=== PATIENT | female | born 1965 | race Asian ===

== ENCOUNTER 2018-05-02 05:10 | Inpatient (IN) | payer BC, OTHER ==
[2018-05-01 11:04] VITALS: BMI 22.4
[2018-05-02] MEDS ORDERED: CEFAZOLIN 1 GM in DEXTROSE 5%-WATER - 50 ML IVPB ONE (06:07)
[2018-05-02] MEDS ORDERED: PHENAZOPYRIDINE HCL 100 MG TABLET (FP) PO ONE (06:08)
[2018-05-02] MEDS ORDERED: DEXAMETHASONE SOD PHOSPHATE/PF 10 MG/ML SDV ONE (07:27)
[2018-05-02] MEDS ORDERED: ROPIVACAINE HCL 0.5% 30ML VIAL ONE (07:27)
--- NOTE | 2018-05-02 07:27 | HP ---
History & Physical Update - History History: No Change - Physical Physical: No Change - Assessment Assessment: No Change - Plan Plan: No Change (full H&P in chart from 04/30/2018 Dr. Licona)
[2018-05-02] MEDS ORDERED: MIDAZOLAM HCL 2 MG/2 ML SINGLE DOSE VIAL ONE ×2 (07:28)
[2018-05-02] MEDS ORDERED: ROCURONIUM BROMIDE 50 MG/5 ML VIAL ONE (08:05)
[2018-05-02] MEDS ORDERED: PROPOFOL 20 ML ONE (08:05)
[2018-05-02] MEDS ORDERED: ceFAZolin SODIUM 1 GM VIAL IVPB ONE (08:12)
[2018-05-02] MEDS ORDERED: KETOROLAC TROMETHAMINE 30 MG/1 ML VIAL ONE (09:22)
[2018-05-02] MEDS ORDERED: DEXAMETHASONE SOD PHOSPHATE 4 MG/1 ML VIAL ONE (09:22)
[2018-05-02] MEDS ORDERED: NEOSTIGMINE METHYLSULFATE 0.5 MG/ML - 10 ML MDV ONE (09:23)
[2018-05-02] MEDS ORDERED: GLYCOPYRROLATE 0.2 MG/1 ML VIAL ONE (09:23)
[2018-05-02] MEDS ORDERED: LIDOCAINE HCL/PF 2% SDV 5ML VIAL ONE (09:23)
[2018-05-02] MEDS ORDERED: hydrALAZINE HCL 20 MG/ML VIAL ONE (10:06)
[2018-05-02] MEDS ORDERED: HYDROmorphone *PCA* 10MG/50ML DISP.SYRIN PCA ONE (10:06)
[2018-05-02] MEDS ORDERED: ONDANSETRON 4 MG/2 ML VIAL IVPUSH PRN ×2 (10:13→10:14)
[2018-05-02] MEDS ORDERED: DEXAMETHASONE SOD PHOSPHATE 4 MG/1 ML VIAL IVPUSH PRN (10:14)
[2018-05-02] MEDS ORDERED: PROMETHAZINE HCL 25 MG/1 ML VIAL IVPB PRN (10:14)
[2018-05-02] MEDS ORDERED: HYDROmorphone *PCA* 10MG/50ML DISP.SYRIN PCA SCH (10:15)
[2018-05-02] MEDS ORDERED: LACTATED RINGERS SOLUTION 1,000 ML IV SCH (10:15)
--- NOTE | 2018-05-02 10:20 | OP ---
Operative Note - Note: Operative Date: 05/02/18 Pre-Operative Diagnosis: leiomyoma of the uterus Operation: abdominal hysterectomy and bilateral salpingectomy Surgeon: Ursula Teague Poker Supervisor: Cherrie Villanueva Anesthesiologist/MEDIA CENTER ASSISTANT: Abigail Dueñas MD Anesthesia: General Specimens Removed: uterus, bilateral salpingx, right paraovarian mass Estimated Blood Loss (mls): 50 Drains, Volume Out (mls): 300 (lindsay) Fluid Volume Replaced (mls): 1,200 Operative Report Dictated: Yes
--- NOTE | 2018-05-02 10:37 | OP ---
DATE OF OPERATION: 05/02/2018 PREOPERATIVE DIAGNOSES: Leiomyomatous uterus, abdominal pain, submucosal myoma and intramural myomas. OPERATION: Total abdominal hysterectomy and bilateral salpingectomy. POSTOPERATIVE DIAGNOSES: Leiomyomatous uterus, abdominal pain, submucosal myoma and intramural myomas, and right paraovarian, 9-cm fibroma. SURGEON: Tad Teague MD DIRECTOR OF ADMISSIONS: REINALDO Shay ANESTHESIA: General. ANESTHESIOLOGIST: Abigail Dueñas MD PROCEDURE: Patient was taken to the operating room and placed in supine position, prepped and draped in the usual sterile fashion. Timeout was performed in accordance with hospital regulation. A Pfannenstiel skin incision was made with the scalpel. Cautery was then used to go through layers of abdominal wall to the level of the fascia. Fascia was cut in the midline, and cautery was then used to open the fascia in the following fashion. Afsaneh was then used to bluntly and sharply dissect the rectus muscle off the fascia. Muscles split in the midline. Peritoneal cavity was then entered and carried upward and downward. A leiomyomatous uterus was then exteriorized. Ovaries were noted to be 3 cm. A paraovarian tumor was noted on the right side, 9 cm. The ovary was adherent to the uterus on the left, and bowel was also attached posteriorly. The round ligament was identified and clamped and cut using LigaSure. Utero-ovarian ligament identified and clamped and cut on the left side. Tubes and bilateral ovaries were removed and submitted to Pathology. was identified and clamped and cut. Vesicouterine reflection was then entered, and bladder was bluntly dissected out of the operative field. Cardinal ligament was identified and clamped and cut on the right side. A 9-cm paraovarian tumor was noted and removed using LigaSure and submitted to Pathology for frozen section. Ovary on the right was noted to be normal. Tube on the right was grasped with a Livingston and removed and submitted to Pathology. Uterine arteries were identified on the right and clamped and cut. Cardinal ligament was identified and clamped and cut down to the level of the cervix. Vagina was then entered using scalpel, and Vaishali was then used to remove the cervix away from the vagina, submitted to Pathology. The vagina was then closed using 0 Vicryl suture in a continuous and locking suture. Hemostasis was achieved. All bleeding was identified and tied off using right-angle clamp and free tie. Hemostasis was achieved. Interceed was then placed over the cervix and in the right cul-de-sac area. Hemostasis was achieved. All packing was removed, and count was noted to be correct. Abdominal sweep done. Peritoneum closed using 0 Vicryl suture in a continuous fashion. Muscles approximated in the midline using 0 Vicryl suture. Fascia was then closed using 0 Vicryl suture in 2 parts. Subcutaneous was then closed using interrupteds using 2-0 Vicryl, and the skin was then closed using 3-0 Vicryl in subcuticular fashion. The wound was washed and dressed. Patient tolerated the procedure well. Estimated blood loss: 50 mL. TAD TEAGUE M.D. [id number]
[2018-05-02] MEDS: LACTATED RINGERS SOLUTION 1,000 ML/1,000 ML INFUS.BAG IV SCH (13:00)
[2018-05-02] MEDS ORDERED: ceFAZolin SODIUM 1 GM VIAL ONE (17:31)
[2018-05-02] MEDS ORDERED: DEXTROSE 5%-WATER - 50 ML IVPB ONE (17:31)
[2018-05-02] MEDS: CEFAZOLIN 1 GM in DEXTROSE 5%-WATER - 50 ML IVPB SCH (17:39)
[2018-05-02 21:44] LABS: BASO % 0.1 % (0-2.0); HEMATOCRIT 24.1 % (32.4-45.2); HEMOGLOBIN 7.5 GM/dL (10.7-15.3); LYMPH % 3.2 % (8-40); MCH 20.4 pg (25.7-33.7); MCHC 31.2 g/dl (32.0-36.0); MEAN CELL VOLUME 65.4 fl (80-96); MEAN PLT VOLUME 9.1 fl (7.5-11.1); MONO % 3.7 % (3.8-10.2); PLATELET COUNT 348 K/MM3 (134-434); RBC 3.69 M/mm3 (3.60-5.2); RDW 17.9 % (11.6-15.6); WHITE BLOOD COUNT 11.8 K/mm3 (4.0-10.0)
[2018-05-03] MEDS ORDERED: ceFAZolin SODIUM 1 GM VIAL ONE ×2 (01:04→09:04)
[2018-05-03] MEDS ORDERED: DEXTROSE 5%-WATER - 50 ML IVPB ONE ×2 (01:04→09:04)
[2018-05-03] MEDS: CEFAZOLIN 1 GM in DEXTROSE 5%-WATER - 50 ML IVPB SCH ×2 (01:28→09:10)
[2018-05-03] MEDS ORDERED: ONDANSETRON 4 MG/2 ML VIAL ONE (07:40)
[2018-05-03] MEDS ORDERED: ONDANSETRON 4 MG/2 ML VIAL IVPB ONE (07:52)
[2018-05-03 08:05] LABS: BASO % 0.1 % (0-2.0); HEMATOCRIT 21.9 % (32.4-45.2); LYMPH % 8.4 % (8-40); MCHC 30.8 g/dl (32.0-36.0); MEAN PLT VOLUME 8.5 fl (7.5-11.1); MONO % 12.9 % (3.8-10.2); NEUT % 78.6 % (42.8-82.8); PLATELET COUNT 289 K/MM3 (134-434); RBC 3.37 M/mm3 (3.60-5.2); RDW 17.8 % (11.6-15.6); WHITE BLOOD COUNT 11.1 K/mm3 (4.0-10.0)
--- NOTE | 2018-05-03 08:17 | PN ---
Progress Note (short form) - Note Progress Note: Post op day#1.Patient stable and c/o pain score of 2-3/10 on Dilaudid HONEYCOMB DECAPPER.I suggested to Dc HONEYCOMB DECAPPER but she requested to continue it.So will continue HONEYCOMB DECAPPER today.
[2018-05-03 08:29] LABS: HEMOGLOBIN 6.7 GM/dL (10.7-15.3)
[2018-05-03 08:42] LABS: ANION GAP 9 MMOL/L (8-16); BLOOD UREA NITROGEN 12 mg/dL (7-18); CALCIUM 7.9 mg/dL (8.5-10.1); CHLORIDE 108 mmol/L (98-107); CO2 26 mmol/L (21-32); GLUCOSE,RANDOM 111 mg/dL (74-106); POTASSIUM 4.1 mmol/L (3.5-5.1); SODIUM 143 mmol/L (136-145)
[2018-05-03 08:44] LABS: CREATININE 0.4 mg/dL (0.55-1.02)
--- NOTE | 2018-05-03 08:56 | PN ---
Progress Note (short form) - Note Progress Note: POD#1 PT with nausea this am and retching that started this am around 6 am. She just received IV zofran. Her abdominal pain is about a 2 out of 10. No vaginal bleeding noted. Vital Signs Period Temp Pulse Resp BP Sys/Peña Pulse Ox Last 24 Hr 97.7 F-98.6 F 51-71 16-20 104-209/53-98 98-100 GEN: appears uncomfortable CV: RR mild tachycardia Lungs: CTA b/l anteriorly ABD: soft, non-distended, inc tenderness. Incision dressing c/d/i. LE: no calf tendernes/SCDs in place CBC, BMP 05/03/ 07:48 05/03/18 07:48 A/P: 52 yo female s/p abdominal hysterectomy with b/l salpingectomy/removal of paraovarian mass Continue antiemetic as needed for nausea, may resume clears once nausea improved Continue IV hydration while oral intake is poor Discontinued IV TAX SERVICES PROFESSIONAL and will medicate with IV tylenol(scheduled) and demerol/ prn. When tolerating clears begin oxycodone. Briggs removal in the am H&H drop/D/w Dr. Teague and will recheck value today Type and cross match but no transfusion at this point.
[2018-05-03] MEDS ORDERED: MEPERIDINE HCL CARPU-JECT 25 MG/1 ML DISP.SYRIN IM PRN (09:12)
[2018-05-03] MEDS ORDERED: PCA PUMP KEY 1 EACH EACH ONE (10:22)
[2018-05-03] MEDS: ACETAMINOPHEN 1000 MG/100 ML VIAL (NON FORMULARY) IVPB SCH ×3 (10:30→22:33)
[2018-05-03] MEDS: LACTATED RINGERS SOLUTION 1,000 ML/1,000 ML INFUS.BAG IV SCH ×2 (11:49→21:22)
--- NOTE | 2018-05-03 12:21 | PATH ---
Surgical Pathology Report Patient Name: NEVAEH SAMSON [facility]. Rec. #: [id number] /Age/Gender: 1965 (Age: 52) / F Account: [id number] Location: [facility] OBS/COAL GRADER Taken: 05/02/2018 Received: 05/02/2018 Reported: 05/03/2018 Physicians: Ursula Teague M.D. Specimen(s) Received A: RIGHT PARAOVARIAN B: LEFT FALLOPIAN TUBE C: UTERUS AND CERVIX D: RIGHT FALLOPIAN TUBE Clinical History Leiomyoma of uterus Intraoperative Consult Diagnosis Right paraovarian mass, frozen section: Spindle cell neoplasm, favor benign. Defer to permanents. Naila Atwood M.D., 05/02/18 Final Diagnosis A. PARAOVARIAN MASS, RIGHT, EXCISION: SPINDLE CELL NEOPLASM CONSISTENT WITH LEIOMYOMA WITH FOCAL DEGENERATIVE CHANGES. B. FALLOPIAN TUBE, LEFT, SALPINGECTOMY: UNREMARKABLE FALLOPIAN TUBE INCLUDING FULL LUMINAL PORTION AND FIMBRIATED END. C. UTERUS AND CERVIX, TOTAL ABDOMINAL HYSTERECTOMY: PROLIFERATIVE ENDOMETRIUM. INTRAMURAL LEIOMYOMA(TA) WITH FOCAL DEGENERATIVE CHANGES AND CALCIFICATIONS. CERVIX WITHOUT SIGNIFICANT PATHOLOGIC FINDINGS. D. FALLOPIAN TUBE, RIGHT, SALPINGECTOMY: FALLOPIAN TUBE WITH PARATUBAL CYST, INCLUDING FULL LUMINAL PORTION AND FIMBRIATED END. Electronically Signed Phyllis Early M.D. Gross Description A. Received fresh labeled "right paraovarian" is a 381 g, 11.0 x 10.0 x 0.7 cm intact paraovarian mass. The outer surface is pink-warner and smooth. Sectioning reveals warner, firm to rubbery parenchyma with whorled architecture and foci of degeneration. Chemical Engineering Technician sections are submitted for frozen section. Chemical Engineering Technician sections are submitted in 6 cassettes as follows: 1-frozen section residue; 8-6-jmgikomxom sales development representative mass. B. Received in formalin labeled "left fallopian tube," is a 3.7 cm in length fimbriated fallopian tube. The outer surface is warner-pink and smooth. Sectioning reveals an unremarkable lumen. Chemical Engineering Technician sections are submitted in 2 cassettes as follows: 1-fimbria; 2-cross sections of fallopian tube. C. Received in formalin labeled "uterus, cervix," is a 509 g uterus with an attached cervix and no attached adnexa. The specimen measures 12.5 cm from superior to inferior, 10.5 cm from anterior to posterior and 8.0 cm from left to right. The serosa is pink-warner with focal adhesions. The attached cervix measures 2.5 cm in length and averages 2.5 cm in diameter. The ectocervix is pink-warner, smooth and glistening. The endocervix is unremarkable. The endometrial cavity measures 7 cm in length and 3.8 cm from cornu to cornu. The endometrium is warner-red and averages 0.2 cm in thickness. The myometrium displays abundant intramural nodules, measuring up to 6 cm in greatest dimension. The largest nodule displays central degeneration. One of the smaller nodules displays focal calcifications. The remaining nodules are warner and rubbery with whorled architecture. The remaining myometrium is warner-pink and measures up to 4.2 cm in thickness. Chemical Engineering Technician sections are submitted in 11 cassettes as follows: 1-anterior cervix; 2-posterior cervix; 2-3-wsktwqcl endomyometrium; 6-1-ligxvblly endomyometrium; 7-8-largest intramural nodule; 9-calcified intramural nodule, following decalcification; 76-26-udsjrahoch intramural nodules. D. Received in formalin labeled "right fallopian tube," is a 3.5 cm in length fimbriated portion of fallopian tube. There is a 0.9 cm in greatest dimension paratubal cyst attached to the fimbria. The remaining outer surface of the fallopian tube is warner-pink and smooth. Sectioning of the fallopian tube reveals an unremarkable lumen. Chemical Engineering Technician sections are submitted in 2 cassettes as follows: 1-fimbria with attached paratubal cyst; 2-cross sections of fallopian tube. 05/02/2018 [facility]05/02/2018
[2018-05-03 13:04] LABS: BASO % 0.1 % (0-2.0); EOS % 0.1 % (0-4.5); HEMATOCRIT 21.6 % (32.4-45.2); LYMPH % 7.3 % (8-40); MCH 20.9 pg (25.7-33.7); MCHC 31.5 g/dl (32.0-36.0); MEAN CELL VOLUME 66.3 fl (80-96); MEAN PLT VOLUME 8.5 fl (7.5-11.1); MONO % 10.9 % (3.8-10.2); NEUT % 81.6 % (42.8-82.8); PLATELET COUNT 281 K/MM3 (134-434); RBC 3.27 M/mm3 (3.60-5.2); RDW 18.1 % (11.6-15.6); WHITE BLOOD COUNT 10.1 K/mm3 (4.0-10.0)
[2018-05-03 13:29] LABS: HEMOGLOBIN 6.8 GM/dL (10.7-15.3)
[2018-05-03] MEDS ORDERED: ONDANSETRON 4 MG/2 ML VIAL IVPUSH PRN (13:33)
[2018-05-03] MEDS: oxyCODONE HCL 5 MG TABLET PO PRN ×2 (13:39→21:27)
[2018-05-03] MEDS: ENOXAPARIN NA (PORCINE) 40 MG/0.4 ML DISP.SYRIN SQ SCH (13:39)
--- NOTE | 2018-05-03 23:13 | PN ---
Progress Note (SOAP) - Subjective Chief Complaint: Pt doing well no nausea or pain when seen - Current Medications Current Medications: Active Medications Acetaminophen (Tylenol -) 650 mg PO Q4H PRN PRN Reason: FEVER Acetaminophen (Ofirmev Injection -) 1,000 mg IVPB Q6H [facility] Stop: 05/04/18 03:01 Last Admin: 05/03/18 22:33 Dose: 1,000 mg Enoxaparin Sodium (Lovenox -) 40 mg SQ DAILY [facility] Last Admin: 05/03/18 13:39 Dose: 40 mg Ferrous Sulfate (Feosol -) 325 mg PO DAILY [facility] Folic Acid (Folic Acid -) 1 mg PO DAILY [facility] Lactated Ringer's (Lactated Ringers Solution) 1,000 ml in 1,000 mls @ 125 mls/ hr IV ASDIR [facility] Last Admin: 05/03/18 21:22 Dose: 125 mls/hr Lactated Ringer's (Lactated Ringers Solution) 1,000 mls @ 125 mls/hr IV ASDIR [facility] Last Admin: 05/02/18 12:00 Dose: 0 mls Meperidine HCl (Demerol Injection -) 50 mg IM Q6H PRN PRN Reason: PAIN LEVEL 1-5 Ondansetron HCl (Zofran Injection) 4 mg IVPUSH Q6H PRN PRN Reason: NAUSEA Oxycodone HCl (Roxicodone -) 5 mg PO Q4H PRN PRN Reason: PAIN LEVEL 6-10 Last Admin: 05/03/18 13:39 Dose: 5 mg Oxycodone HCl (Roxicodone -) 10 mg PO Q4H PRN PRN Reason: PAIN LEVEL 7 - 10 Last Admin: 05/03/18 21:27 Dose: 10 mg Promethazine HCl (Phenergan Injection -) 12.5 mg IVPB Q6H PRN PRN Reason: NAUSEA AND/OR VOMITING - Objective Vital Signs: Vital Signs Temperature 98.6 F 05/03/18 22:00 Pulse Rate 66 05/03/18 22:00 Respiratory Rate 18 05/03/18 22:00 Blood Pressure 140/59 05/03/18 22:00 O2 Sat by Pulse Oximetry (%) 98 05/03/18 22:00 Constitutional: Yes: Well Nourished, No Distress Musculoskeletal: Yes: WNL Extremities: Yes: WNL Edema: No Wound/Incision: Yes: Clean/Dry, Well Approximated, Dressing Dry and Intact Neurological: Yes: WNL, Alert, Oriented Labs Lab Results: CBC, BMP 05/03/18 12:44 05/03/18 07:48 Assessment/Plan POD1 sp toro doing well Plan oob DC home if passing flatus and stable in am
[2018-05-04] MEDS: ACETAMINOPHEN 1000 MG/100 ML VIAL (NON FORMULARY) IVPB SCH (04:34)
[2018-05-04] MEDS: LACTATED RINGERS SOLUTION 1,000 ML/1,000 ML INFUS.BAG IV SCH (04:34)
[2018-05-04] MEDS: oxyCODONE HCL 5 MG TABLET PO PRN ×4 (06:26→22:46)
[2018-05-04 08:32] LABS: BASO % 0.5 % (0-2.0); EOS % 1.2 % (0-4.5); LYMPH % 16.6 % (8-40); MCH 20.5 pg (25.7-33.7); MCHC 30.7 g/dl (32.0-36.0); MEAN CELL VOLUME 66.6 fl (80-96); MEAN PLT VOLUME 8.7 fl (7.5-11.1); MONO % 9.7 % (3.8-10.2); PLATELET COUNT 257 K/MM3 (134-434); RBC 3.31 M/mm3 (3.60-5.2); RDW 18.7 % (11.6-15.6); WHITE BLOOD COUNT 8.3 K/mm3 (4.0-10.0)
[2018-05-04 08:42] LABS: HEMOGLOBIN 6.8 GM/dL (10.7-15.3)
--- NOTE | 2018-05-04 09:00 | PN ---
Progress Note (SOAP) - Subjective Chief Complaint: Pt doing well elevated BP will give labetalol if still elevated - Current Medications Current Medications: Active Medications Acetaminophen (Tylenol -) 650 mg PO Q4H PRN PRN Reason: FEVER Enoxaparin Sodium (Lovenox -) 40 mg SQ DAILY [facility] Last Admin: 05/03/18 13:39 Dose: 40 mg Ferrous Sulfate (Feosol -) 325 mg PO DAILY [facility] Folic Acid (Folic Acid -) 1 mg PO DAILY [facility] Lactated Ringer's (Lactated Ringers Solution) 1,000 ml in 1,000 mls @ 125 mls/ hr IV ASDIR [facility] Last Admin: 05/04/18 04:34 Dose: 125 mls/hr Lactated Ringer's (Lactated Ringers Solution) 1,000 mls @ 125 mls/hr IV ASDIR [facility] Last Admin: 05/02/18 12:00 Dose: 0 mls Labetalol HCl (Normodyne -) 200 mg PO ONCE ONE Stop: 05/04/18 08:50 Meperidine HCl (Demerol Injection -) 50 mg IM Q6H PRN PRN Reason: PAIN LEVEL 1-5 Ondansetron HCl (Zofran Injection) 4 mg IVPUSH Q6H PRN PRN Reason: NAUSEA Oxycodone HCl (Roxicodone -) 5 mg PO Q4H PRN PRN Reason: PAIN LEVEL 6-10 Last Admin: 05/04/18 06:26 Dose: 5 mg Oxycodone HCl (Roxicodone -) 10 mg PO Q4H PRN PRN Reason: PAIN LEVEL 7 - 10 Last Admin: 05/03/18 21:27 Dose: 10 mg Promethazine HCl (Phenergan Injection -) 12.5 mg IVPB Q6H PRN PRN Reason: NAUSEA AND/OR VOMITING - Objective Vital Signs: Vital Signs Temperature 98.7 F 05/04/18 06:00 Pulse Rate 63 05/04/18 06:00 Respiratory Rate 18 05/04/18 06:00 Blood Pressure 160/93 05/04/18 06:00 O2 Sat by Pulse Oximetry (%) 98 05/03/18 22:00 Constitutional: Yes: Well Nourished, No Distress Labs Lab Results: CBC, BMP 05/04/18 07:50 05/03/18 07:48 Assessment/Plan POD2 passing flatus sp toro doing well Anemia Plan ferrous sulfate BID COlace oob DC home if passing flatus and stable
[2018-05-04] MEDS ORDERED: LABETALOL HCL 200 MG TABLET (FP) PO ONE (09:30)
[2018-05-04] MEDS: FERROUS SO4 325 MG TABLET (FP) PO SCH (09:34)
[2018-05-04] MEDS: FOLIC ACID 1 MG TABLET (FP) PO SCH (09:34)
[2018-05-04] MEDS: ENOXAPARIN NA (PORCINE) 40 MG/0.4 ML DISP.SYRIN SQ SCH (09:35)
[2018-05-04] MEDS: ACETAMINOPHEN 325 MG TABLET (FP) PO PRN ×3 (11:45→22:45)
[2018-05-04 11:51] LABS: ANISOCYTOSIS 2+; MACROCYTOSIS 1+; OVALOCYTE 1+; PLATELET ESTIMATE NORMAL
[2018-05-05] MEDS: oxyCODONE HCL 5 MG TABLET PO PRN ×2 (02:32→08:46)
[2018-05-05] MEDS: ACETAMINOPHEN 325 MG TABLET (FP) PO PRN (08:47)
[2018-05-05] MEDS: FOLIC ACID 1 MG TABLET (FP) PO SCH (09:10)
[2018-05-05] MEDS: ENOXAPARIN NA (PORCINE) 40 MG/0.4 ML DISP.SYRIN SQ SCH (09:10)
[2018-05-05] MEDS: FERROUS SO4 325 MG TABLET (FP) PO SCH (09:10)
[2018-05-05 11:33] VITALS: TEMP 98.4
[2018-05-05 11:34] VITALS: BP 152/77; PULSE 59
--- NOTE | 2018-05-06 08:13 | SURG ---
Surgery Thinner Sprayer Note Thinner Sprayer: Cherrie Villanueva PA-C Date of Service: 05/02/18 Diagnosis: leiomyoma of the uterus Procedure: abdominal hysterectomy and bilateral salpingectomy I was present for the entirety of the operative procedure. For further detail, please refer to operative report. Visit type - Case Type Case Type: Scheduled - Emergency Emergency Visit: No - New patient This patient is new to me today: Yes Date on this admission: 05/02/18
--- NOTE | 2018-05-06 08:43 | DS ---
Physical Exam-ENGINEERING TECHNICIAN Vital Signs: Vital Signs Temperature 98.4 F 05/05/18 10:00 Pulse Rate 59 L 05/05/18 11:30 Respiratory Rate 20 05/05/18 11:30 Blood Pressure 152/77 05/05/18 11:30 O2 Sat by Pulse Oximetry (%) 98 05/03/18 22:00 Constitutional: Yes: Well Nourished, No Distress Cardiovascular: Yes: WNL Respiratory: Yes: WNL Gastrointestinal: Yes: WNL, Normal Bowel Sounds, Soft Extremities: Yes: WNL Edema: No Wound/Incision: Yes: Clean/Dry, Well Approximated Labs: CBC, BMP 05/04/18 07:50 05/03/18 07:48 Discharge Summary Reason For Visit: LEIOMYOMA OF UTERUS Procedures: Principal: Total abdoinal hysterectomy. bilateral salpingectomy Condition: Good - Instructions Diet, Activity, Other Instructions: Dr. Ursula Teague Health Information Technician discharge instructions Physical activity Resume your normal everyday activity as tolerated no heavy lifting or exercise until seen by your surgeon. You may walk unlimited ambrose of and climb stairs. You may resume driving the car when you feel safe and comfortable behind the wheel. No sexual activity as instructed by Dr. Teague. Wound care If you have a bandage, leave it on, and keep dry for 48-72 hours. After that time discard the outer bandage. If they are tapes on the skin under the out of bandage leave them in place. They will peel off in the next 7 to 10 days. Do Not Peel them off. You may shower the day after surgery. If there are tapes present on the skin, you may shower over them. Diet There are no dietary restrictions. Eat healthy, high-fiber foods. Drink 6 to 8 glasses of liquid each day. This will assist in keeping your bowels are regular. Pain management You may take Tylenol or acetaminophen or Ibuprofen (for example, Motrin, Advil etc.) from my pain prescription medication is ordered should be taken as prescribed for moderate to severe pain. Call Dr. Teague for any of the following: Severe pain not relieved by medication Fever of 101 or higher Excessive bleeding or drainage on dressing Inability to urinate Call the office at [phone] for an appointment in seven days. Referrals: Ursula Teague MD [Staff Physician] - Disposition: HOME - Home Medications Comprehensive Discharge Medication List: Ambulatory Orders Iron,Carb/Vit C/Vit B12/Folic [Iron 100 Plus Tablet] 1 each PO DAILY tablet 10/25 Acetaminophen [Tylenol] 325 mg PO PRN 05/01/18 Docusate Sodium [Colace] 100 mg PO BID #60 capsule 05/04/18 Ferrous Sulfate [Iron] 325 mg PO BID #60 tablet 05/04/18 Oxycodone HCl/Acetaminophen [Percocet 5-325 mg Tablet] 1 - 2 tab PO Q6H #20 tab MDD 6 05/04/18
== END 2018-05-05 14:00 | disposition home or self-care (01) | DRG 743 ==
LOC: JSAMEDAYSX 05:10 → EDSTATUS 10:00 → J3W 12:40
PROVIDERS: ADMIT Obstetrics & Gynecology; ATTEND Obstetrics & Gynecology
PROC: 0UT70ZZ Resection of Bilateral Fallopian Tubes, Open Approach (ICD-10-PCS; 2018-05-02)
PROC: 0UT90ZZ Resection of Uterus, Open Approach (ICD-10-PCS; principal; 2018-05-02 07:30)
DX: D25.0 Submucous leiomyoma of uterus (principal); D25.1 Intramural leiomyoma of uterus; N83.8 Other noninflammatory disorders of ovary, fallopian tube and broad ligament
CPT/HCPCS: 36415; 80048; 84703; 85025; 86850; 86900; 86901; 86922; 88302-TC; 88305-TC; 88307-TC; 88331-TC; 94010; 94760; J0131

== ENCOUNTER 2018-06-07 00:52 | Emergency (ER) | payer BC ==
[2018-06-07 01:11] VITALS: BMI 22.4
--- NOTE | 2018-06-07 01:45 | PDOC ---
History of Present Illness - General Chief Complaint: Blood Pressure Problem Stated Complaint: BLOOD PRESSURE PROBLEM Time Seen by Provider: 06/07/18 01:09 - History of Present Illness Initial Comments: 06/07/18 01:27 52 F with h/o HTN presents to ED with elevated BP. Pt states that she could not fall asleep last night and checked her BP and found it to be 200/100. Pt denies any symptoms. Denies CP/SOB. Denies PADILLA/N/V. Denies weakness/numbness in any extremity. Pt states that she does not check her BP regularly and does not know what her baseline BP is. She states she was on BP meds 3 years ago but was told to stop them due to low BP. Past History - Past Medical History Allergies/Adverse Reactions: Allergies Allergy/AdvReac Type Severity Reaction Status Date / Time No Known Allergies Allergy Verified 06/07/18 01:07 Home Medications: Ambulatory Orders Iron,Carb/Vit C/Vit B12/Folic [Iron 100 Plus Tablet] 1 each PO DAILY tablet 10/25 Acetaminophen [Tylenol] 325 mg PO PRN 05/01/18 Docusate Sodium [Colace] 100 mg PO BID #60 capsule 05/04/18 Ferrous Sulfate [Iron] 325 mg PO BID #60 tablet 05/04/18 Oxycodone HCl/Acetaminophen [Percocet 5-325 mg Tablet] 1 - 2 tab PO Q6H #20 tab MDD 6 05/04/18 Anemia: Yes Asthma: No Cancer: No Cardiac Disorders: No CVA: No COPD: No CHF: No Dementia: No Diabetes: No GI Disorders: No Disorders: No HTN: Yes Hypercholesterolemia: No Liver Disease: No Seizures: Yes ("1-2 TWICE IN MY LIFE" 4-5 YEARS AGO) Thyroid Disease: No - Suicide/Smoking/Psychosocial Hx Smoking History: Never smoked Have you smoked in the past 12 months: No Information on smoking cessation initiated: No Hx Alcohol Use: No Drug/Substance Use Hx: No Substance Use Type: None Hx Substance Use Treatment: No Review of Systems - Review of Systems Comments:: 06/07/18 01:45 "GENERAL/CONSTITUTIONAL: No fever or chills. No weakness. HEAD, EYES, EARS, NOSE AND THROAT: No change in vision. No ear pain or discharge. No sore throat. CARDIOVASCULAR: No chest pain or shortness of breath. RESPIRATORY: No cough, wheezing, or hemoptysis. GASTROINTESTINAL: No nausea, vomiting, diarrhea or constipation. GENITOURINARY: No dysuria, frequency, or change in urination. MUSCULOSKELETAL: No joint or muscle swelling or pain. No neck or back pain. SKIN: No rash NEUROLOGIC: No headache, vertigo, loss of consciousness, or change in strength/ sensation. ENDOCRINE: No increased thirst. No abnormal weight change. HEMATOLOGIC/LYMPHATIC: No anemia, easy bleeding, or history of blood clots. ALLERGIC/IMMUNOLOGIC: No hives or skin allergy. *Physical Exam - Vital Signs Last Vital Signs Temp Pulse Resp BP Pulse Ox 97.8 F 60 18 179/127 H 96 06/07/18 01:07 06/07/18 01:07 06/07/18 01:07 06/07/18 01:07 06/07/18 01:07 - Physical Exam Comments: 06/07/18 01:46 "GENERAL: Awake, alert, and fully oriented, in no acute distress. HEAD: No signs of trauma EYES: PERRLA, EOMI, sclera anicteric, conjunctiva clear ENT: Auricles normal inspection, hearing grossly normal, nares patent, oropharynx clear without exudates. Moist mucosa NECK: Nontender, no stepoffs, Normal ROM, supple, no lymphadenopathy, JVD, or masses LUNGS: Breath sounds equal, clear to auscultation bilaterally. No wheezes, and no crackles HEART: Regular rate and rhythm, normal S1 and S2, no murmurs, rubs or gallops ABDOMEN: Soft, nontender, normoactive bowel sounds. No guarding, no rebound. No masses EXTREMITIES: Normal range of motion, no edema. No clubbing or cyanosis. No cords, erythema, or tenderness NEUROLOGICAL: Cranial nerves II through XII intact. 5/5 strength and sensation in all extremities, Normal speech, normal gait, normal cerebellar function SKIN: Warm, Dry, normal turgor, no rashes or lesions noted. Medical Decision Making - Medical Decision Making 06/07/18 01:46 52 F with asymptomatic HTN. Unclear what pt's baseline BP is, as she does not check regularly. Will attempt to call pharmacy to determine what pt's previous home BP med was. Otherwise, pt with no symptoms, no clinical signs of end organ damage. No indication for testing at this time. - Recheck BP - F/u PMD 06/07/18 02:30 Pt reassessed - BP now 180/92. Continues to have no complaints. Unable to confirm with pharmacy what medication pt was on, but pt instructed to call her PMD tomorrow. Pt is well appearing, Clinically stable for DC at this time. I discussed the physical exam findings, ancillary test results and final diagnoses with the patient. I answered all of the patient's questions. The patient was satisfied with the care received and felt comfortable with the discharge plan and treatment plan. The patient agrees to follow up with the primary care physician within 24-72 hours. *DC/Admit/Observation/Transfer Diagnosis at time of Disposition: HTN (hypertension) - Discharge Dispostion Disposition: HOME - Referrals Referrals: Kelechi Stephens MD [Primary Care Provider] - - Patient Instructions Printed Discharge Instructions: DI for High Blood Pressure Additional Instructions: Your blood pressure was elevated today. It is important to follow up with your primary doctor as soon as possible to have this further evaluated. Call your doctor tomorrow to make a follow up appointment. Although your physical exam today did not show any signs of serious illness, uncontrolled blood pressure can eventually lead to kidney disease, heart disease , other serious illness, disability, or even . If you experience any chest pain, shortness of breath, headache, confusion, or any other concerning symptoms, return to the ER immediately. - Post Discharge Activity - Attestations Physician Attestion: 06/07/18 02:33 I, Dr. Eric Davis MD, attest that this document has been prepared under my direction and personally reviewed by me in its entirety. I further attest, that it accurately reflects all work, treatment, procedures and medical decision -making performed by me.
[2018-06-07 02:45] VITALS: BP 186/99; PULSE 89; TEMP 98.6
== END 2018-06-07 02:47 | disposition home or self-care (01) ==
LOC: JER 00:52
DX: I10 Essential (primary) hypertension (principal); J45.909 Unspecified asthma, uncomplicated
CPT/HCPCS: 99281-25